=== PATIENT | female | born 1955 | race Caucasian/White ===

== ENCOUNTER → 2023-05-27 08:00 | Outpatient (REF) | payer BC, SELFPAY | LOC: WDC 08:00 | PROVIDERS: ATTENDING PHYSICIAN Family Medicine | DX: Z12.31 Encounter for screening mammogram for malignant neoplasm of breast (principal) | CPT/HCPCS: 77063; 77067 ==

== ENCOUNTER → 2024-05-29 12:01 | Outpatient (REF) | payer BC, SELFPAY | LOC: WDC 12:01 | PROVIDERS: ATTENDING PHYSICIAN Family Medicine | DX: Z12.31 Encounter for screening mammogram for malignant neoplasm of breast (principal) | CPT/HCPCS: 77063; 77067 ==

== ENCOUNTER → 2024-06-26 08:28 | Outpatient (REF) | payer BC, SELFPAY | LOC: RAD 08:28 | PROVIDERS: ATTENDING PHYSICIAN Family Medicine | DX: Z87.39 Personal history of other diseases of the musculoskeletal system and connective tissue (principal); Z00.01 Encounter for general adult medical examination with abnormal findings; Z12.31 Encounter for screening mammogram for malignant neoplasm of breast | CPT/HCPCS: 77080 ==